=== PATIENT | female | born 1965 | race Caucasian/White ===

== ENCOUNTER 2020-09-20 09:14 | Day surgery (SDC) | payer OTHER ==
[~2020-09-20] VITALS: Ht 157.5 cm; Wt 45.4 kg
[2020-09-20] MEDS ORDERED: OMEP20ER (10:12)
[2020-09-20] MEDS ORDERED: ATOR10 PO (10:13)
[2020-09-20] MEDS ORDERED: GABA100 PO (10:13)
[2020-09-20] MEDS ORDERED: CYCL10 PO (10:13)
[2020-09-20] MEDS ORDERED: MULVITA PO (10:14)
--- NOTE | 2020-09-20 10:22 | NUR ---
Ambulatory in Day Surgery History, Chart, Medications and Allergies reviewed before start of procedure. Lungs clear T/O to Auscultation. Patient confirms NPO status and agrees with scheduled surgery. Pre-Op teaching done. Pt verbalizes understanding. Patient States Post-Procedure ride home has been arranged.
--- NOTE | 2020-09-20 10:28 | NUR ---
09/20/20 1028 Khurram Goldman PATIENT DETERMINED TO BE ASA APPROPRIATE FOR PROPOFOL SEDATION PRIOR TO START OF PROCEDURE BY DR. CRUZ 3-LEAD EKG REVIEWED WITH PHYSICIAN PRIOR TO START OF PROCEDURE.Patient to ENDO 1History, Chart, Medications and Allergies reviewed before start of procedure.History, Chart, Medications and Allergies reviewed before start of procedure. MONITOR INTACT WITH CONTINUOUS PULSE OXIMETRY AND INTERMITTENT BP.
--- NOTE | 2020-09-20 11:23 | NUR ---
Discharge instructions reviewed with patient. Patient verbalizes understanding. Copy given to patient to take home. Patient States Post-Procedure ride home has been arranged. Discharged via wheelchair to private car for ride home.
== END 2020-09-20 11:26 | disposition home or self-care (01) ==
LOC: ORSCMMR 09:14 → ORD 10:30 → ORSCMMR 11:26
PROVIDERS: Internal Medicine Gastroenterology
PROC: 0DJD8ZZ Inspection of Lower Intestinal Tract, Via Natural or Artificial Opening Endoscopic (ICD-10-PCS; principal; 2020-09-20 10:30)
DX: K62.5 Hemorrhage of anus and rectum (principal); K57.30 Diverticulosis of large intestine without perforation or abscess without bleeding; K64.8 Other hemorrhoids; K21.9 Gastro-esophageal reflux disease without esophagitis; E78.00 Pure hypercholesterolemia, unspecified; Z79.899 Other long term (current) drug therapy
CPT/HCPCS: J2704; J7120

== ENCOUNTER → 2020-11-13 | Outpatient (CLI) | payer OTHER ==
[~2020-11-13] MED LIST: ATOR10 PO; CYCL10 PO; GABA100 PO; HYDR1TAB94 PO; MULVITA PO; OMEP20ER
== END | disposition home or self-care (01) ==
LOC: LAB SHORT 11:57 → LAB UCHC 11:57 → LAB SHORT 11-14 11:57
DX: K21.9 Gastro-esophageal reflux disease without esophagitis (principal)
CPT/HCPCS: 87338

== ENCOUNTER 2021-02-15 16:29 | Emergency (ER) | payer OTHER ==
[~2021-02-15] VITALS: Ht 154.9 cm; Wt 46.7 kg
[~2021-02-15 16:29] MED LIST changes: -HYDR1TAB94 PO
[2021-02-15] MEDS ORDERED: HYDR1TAB94 PO (20:02)
== END 2021-02-15 20:22 | disposition home or self-care (01) ==
LOC: ER 16:29
DX: S00.03XA Contusion of scalp, initial encounter (principal); S13.4XXA Sprain of ligaments of cervical spine, initial encounter; F17.200 Nicotine dependence, unspecified, uncomplicated; Z79.899 Other long term (current) drug therapy; V58.5XXA Driver of pick-up truck or van injured in noncollision transport accident in traffic accident, initial encounter; Y92.410 Unspecified street and highway as the place of occurrence of the external cause
CPT/HCPCS: 70450; 72125; 99284-25

== ENCOUNTER 2021-03-05 12:36 | Emergency (ER) | payer OTHER ==
[~2021-03-05] VITALS: Ht 154.9 cm; Wt 46.7 kg
[~2021-03-05 12:36] MED LIST changes: +HYDR1TAB94 PO
== END 2021-03-05 15:45 | disposition home or self-care (01) ==
LOC: ER 12:36
DX: M25.531 Pain in right wrist (principal); Z79.899 Other long term (current) drug therapy
CPT/HCPCS: 29125; 73100; 93971; 96372-59; 99283-25; J1885

== ENCOUNTER → 2021-03-08 | Outpatient (CLI) | payer OTHER | END | disposition home or self-care (01) | LOC: LAB 08:50 → LAB SHORT 08:50 | DX: R10.9 Unspecified abdominal pain (principal) | CPT/HCPCS: 87077; 87086; 87186 ==

== ENCOUNTER → 2021-07-30 | Outpatient (CLI) | payer OTHER | END | disposition home or self-care (01) | LOC: LAB 10:20 → LAB SHORT 10:20 | DX: R31.9 Hematuria, unspecified (principal) | CPT/HCPCS: 87086 ==

== ENCOUNTER 2022-11-09 19:04 | Emergency (ER) | payer OTHER ==
[~2022-11-09] VITALS: Ht 154.9 cm; Wt 47.6 kg
[2022-11-09] MEDS ORDERED: CYCL10 PO (22:55)
== END 2022-11-09 23:00 | disposition home or self-care (01) ==
LOC: ER 19:04
DX: M54.41 Lumbago with sciatica, right side (principal); F17.200 Nicotine dependence, unspecified, uncomplicated; Z79.899 Other long term (current) drug therapy
CPT/HCPCS: A9270; J1885

== ENCOUNTER 2023-07-17 09:56 | Day surgery (SDC) | payer OTHER ==
[~2023-07-17] VITALS: Ht 152.4 cm; Wt 45.8 kg
[2023-07-17] VITALS (10 sets, daily range): BP systolic 134–176; BP diastolic 80–104
[~2023-07-17 09:56] MED LIST changes: -OMEP20ER; +OMEP20ER PO
[2023-07-17] MEDS ORDERED: PROBIOTIC1 EA13 PO (10:40)
[2023-07-17] MEDS ORDERED: VITAMIN D5000 UNIT PO (10:40)
--- NOTE | 2023-07-17 11:04 | NUR ---
History, Chart, Medications and Allergies reviewed before start of procedure. Ambulatory in Day Surgery. Pre-Op teaching done. Pt verbalizes understanding. Patient confirms NPO status and agrees with scheduled surgery. Lungs clear T/O to Auscultation. Patient States Post-Procedure ride home has been arranged.
== END 2023-07-17 13:03 | disposition home or self-care (01) ==
LOC: ORSCMMR 09:56 → ORD 11:30 → ORSCMMR 13:03
PROVIDERS: Obstetrics & Gynecology
PROC: 0UDB8ZX Extraction of Endometrium, Via Natural or Artificial Opening Endoscopic, Diagnostic (ICD-10-PCS; principal; 2023-07-17 11:30)
DX: N95.0 Postmenopausal bleeding (principal); N84.1 Polyp of cervix uteri; K21.9 Gastro-esophageal reflux disease without esophagitis; F17.210 Nicotine dependence, cigarettes, uncomplicated; J44.9 Chronic obstructive pulmonary disease, unspecified; Z79.899 Other long term (current) drug therapy
CPT/HCPCS: 88305; A9270; J0690; J1100; J1885; J2250; J2405; J2704; J3010; J7120

== ENCOUNTER → 2025-07-04 | Outpatient (CLI) | payer OTHER ==
[~2025-07-04] MED LIST changes: +AMOCLA875 PO; +AMOX875 PO; +PROBIOTIC1 EA13 PO; +SULTRIDS PO; +VITAMIN D5000 UNIT PO
[2025-07-04 14:50] LABS: BASOPHILS ABSOLUTE AUTO 0.03 K/mm3 (0.00-0.23); BASOPHILS PERCENT AUTO 1 % (0-2); EOSINOPHILS ABSOLUTE AUTO 0.12 K/mm3 (0.00-0.68); EOSINOPHILS PERCENT AUTO 2 % (0-6); Hematocrit 32.7 % (33.0-51.0); Hemoglobin 10.7 g/dL (11.5-16.0); IMMATURE GRAN ABSOLUTE AUTO 0.02 K/mm3 (0.00-0.10); IMMATURE GRAN PERCENT AUTO 0 % (0-1); LYMPHOCYTES ABSOLUTE AUTO 1.80 K/mm3 (0.84-5.20); LYMPHOCYTES PERCENT AUTO 29 % (21-46); MONOCYTES ABSOLUTE AUTO 0.52 K/mm3 (0.16-1.47); MONOCYTES PERCENT AUTO 8 % (4-13); Mean Corpuscular HGB Conc 32.7 g/dL (31.5-36.5); Mean Corpuscular Volume 85 fL (80-100); NEUTROPHILS ABSOLUTE AUTO 3.75 K/mm3 (1.96-9.15); NEUTROPHILS PERCENT AUTO 60 % (41-73); NRBC ABSOLUTE 0.00 K/mm3 (0.00-0.02); NRBC Auto 0.0 /100 WBC (0.0-0.2); Platelet Count 286 K/mm3 (150-400); RDW Coefficient Variation 13.5 % (11.7-14.2); RDW Standard Deviation 41.5 fL (35.1-46.3)
[2025-07-04 16:22] LABS: Anion Gap 9.0 mmol/L (3-11); Blood Urea Nitrogen 12.0 mg/dL (8-24); CO2, Blood 27.0 mmol/L (21-32); Calcium, Blood 9.1 mg/dL (8.5-10.1); Chloride, Blood 104.0 mmol/L (98-108); Creatinine, Blood 0.65 mg/dL (0.40-1.00); Glucose, Blood 117.0 mg/dL (70-99); Potassium, Blood 3.7 mmol/L (3.5-5.5); Sodium, Blood 136.0 mmol/L (136-145)
== END ==
LOC: LAB 09:10 → LAB SHORT 09:10
PROVIDERS: Physician Assistant
DX: L03.213 Periorbital cellulitis (principal)
CPT/HCPCS: 80048; 85025